=== PATIENT | female | born 1970 | race Caucasian/White ===

== ENCOUNTER 2018-11-01 15:03 | Emergency (ER) | payer OTHER ==
--- NOTE | 2018-11-01 16:27 | EDM.PDOC ---
ED HPI GENERAL MEDICAL PROBLEM - General Chief Complaint: Neuro Symptoms/Deficits Stated Complaint: VISION ISSUES Time Seen by Provider: 11/01/18 16:00 Source of Information: Reports: Patient History Limitations: Reports: No Limitations - History of Present Illness INITIAL COMMENTS - FREE TEXT/NARRATIVE: Eliza is a 48 year old female, hx of Tam thyroiditis who presents to the ED today with c/o right sided visual loss. Patient reports she was in town when symptoms started, lasted for 45 minutes, now completely resolved. Patient has had this happen now three times in the last 2 months. Patient reports that her thyroid levels are "all over the place". Difficulty with finding the right medication dosing. 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 Patient does have hx of migraine headaches but has not had issues with these for 10 years. She does report that when she did have them they did present similarly with right sided visual loss although she always had a headache following. Patient has had no headaches with these episodes. She reports that with her first episode she felt very tired and slept for a few hours, that has not happened since. NO recent fever, injury/trauma. Patient does report that has had ongoing upper thigh numbness for "months". Patient denies any family hx of MS. Patient doesn't report anything that makes her symptoms better or worse. Onset: Today, Sudden Duration: Minutes: (45) - Related Data Allergies Allergy/AdvReac Type Severity Reaction Status Date / Time caffeine Allergy Headache Verified 11/01/18 16:18 Sulfa (Sulfonamide Allergy Rash Verified 11/01/18 16:18 Antibiotics) Home Meds: Home Meds Cannabidiol (Cbd) Extract [Epidiolex] 100 mg PO DAILY 11/01/18 [History] Levothyroxine Sodium [Synthroid] 300 mcg PO DAILY 11/01/18 [History] PARoxetine [Paxil] 20 mg PO DAILY 11/01/18 [History] Social & Family History - Tobacco Use Smoking Status *Q: Never Smoker - Recreational Drug Use Recreational Drug Use: No ED ROS GENERAL - Review of Systems Review Of Systems: ROS reveals no pertinent complaints other than HPI. - Physical Exam Exam: See Below Exam Limited By: No Limitations General Appearance: Alert, WD/WN, No Apparent Distress Eye Exam: Bilateral Eye: EOMI, PERRL Ears: Normal External Exam, Normal TMs Nose: Normal Inspection, Normal Mucosa Throat/Mouth: Normal Oropharynx Head Exam: Atraumatic, Normocephalic Neck: Normal Inspection, Supple, Non-Tender, Other (goiter) Respiratory/Chest: No Respiratory Distress, Lungs Clear, Normal Breath Sounds Cardiovascular: Normal Peripheral Pulses, Regular Rate, Rhythm GI/Abdominal: Normal Bowel Sounds, Soft, Non-Tender Neuro Exam (Abbreviated): Alert, Oriented, CN II-XII Intact, No Motor/Sensory Deficits Back Exam: Normal Inspection Extremities: Normal Inspection, Normal Range of Motion Psychiatric: Normal Affect, Normal Mood Skin Exam: Warm, Dry, Intact Course - Vital Signs Last Recorded V/S: Last Vital Signs Temp 35.9 C 11/01/18 16:10 Pulse 83 11/01/18 16:31 Resp 12 11/01/18 16:31 BP 156/95 H 11/01/18 16:31 Pulse Ox 96 11/01/18 16:31 Eliza is a 48 year old female, presents to the ED today with right sided visual loss, resolved prior to arrival here. Please refer to HPI and focused exam. Patient arrives here mildly hypertensive but otherwise hemodynamically stable, GCS of 15 with no neuro/focal deficits and NIH of O. Likely this is atypical migraine related, given resolution with prior episodes, less likely stroke or mass effect. Given c/o numbness to thighs and increased tiredness earlier when this happened I feel that MS is on the differential. Blood work today including a CBC, BMP and TSH, T3/4 obtained and are all within normal limites. CT of head obtained and is negative for any acute findings. I discussed exam findings and test results with patient, I do recommend follow up with her PCP with regard to MS work up with regard to future MRI of head/spine and potentially a LP as deemed appropriate. Reasons to return to the ED discussed in detail. Patient agreeable and discharged home in stable condition. - Orders/Labs/Meds Orders: Active Orders 24 hr Category Date Time Status Head wo Cont [CT] Stat Exams 11/01/18 16:04 Ordered Labs: Laboratory Tests 11/01/18 11/01/18 Range/Units 16:16 16:16 WBC 5.7 (4.5-11.0) K/uL RBC 4.69 (3.30-5.50) M/uL Hgb 14.1 (12.0-15.0) g/dL Hct 43.3 (36.0-48.0) % MCV 92 (80-98) fL MCH 30 (27-31) pg MCHC 33 (32-36) % Plt Count 286 (150-400) K/uL Neut % (Auto) 59 (36-66) % Lymph % (Auto) 28 (24-44) % Gove % (Auto) 11 H (2-6) % Eos % (Auto) 1 L (2-4) % Baso % (Auto) 1 (0-1) % Sodium 140 (140-148) mmol/L Potassium 4.4 (3.6-5.2) mmol/L Chloride 104 (100-108) mmol/L Carbon Dioxide 27 (21-32) mmol/L Anion Gap 9.1 (5.0-14.0) mmol/L BUN 13 (7-18) mg/dL Creatinine 0.7 (0.6-1.0) mg/dL Est Cr Clr Drug Dosing 87.48 mL/min Estimated GFR (MDRD) > 60 (>60) Glucose 89 (74-106) mg/dL Calcium 8.8 (8.5-10.1) mg/dL Free T4 1.16 (0.76-1.46) ng/dL Free T3 2.40 (2.18-3.98) pg/dL TSH, Ultra Sensitive 1.364 (0.358-3.740) uIU/mL Departure - Departure Time of Disposition: 18:00 Disposition: Home, Self-Care 01 Condition: Good Clinical Impression: Visual disturbance of one eye, Complaint of paresthesia Fatigue Qualifiers: Fatigue type: unspecified Qualified Code(s): R53.83 - Other fatigue - Discharge Information Referrals: PCP,None [Primary Care Provider] - Forms: ED Department Discharge Additional Instructions: Blood work and CT scan reassuring today. Your TSH, T3/4 look good as well. Please follow up with your primary care provider this week to discuss your symptoms with regard to MRI of head/cervical spine. - My Orders Last 24 Hours: My Active Orders 11/01/18 16:04 Head wo Cont [CT] Stat - Assessment/Plan Last 24 Hours: My Active Orders 11/01/18 16:04 Head wo Cont [CT] Stat
--- NOTE | 2018-11-01 17:37 | CRLCT ---
HISTORY: Right-sided visual loss. COMPARISON: None. TECHNIQUE: Noncontrast axial images were obtained from the skullbase to the vertex and reviewed in brain, blood an bone windows. FINDINGS: Muñiz-white matter differentiation is preserved. No evidence for acute intracranial hemorrhage or infarction. No midline shift or mass effect. The ventricles are nondilated and symmetric. No abnormal intra or extra-axial fluid collection. The bony calvaria are intact. Visualized paranasal sinuses and mastoid air cells are clear. IMPRESSION: No acute intracranial pathology. Please note that all CT scans at this facility use dose modulation, iterative reconstruction, and/or weight-based dosing when appropriate to reduce radiation dose to as low as reasonably achievable. Dictated by Zoe Tracy MD @ Nov 01 2018 5:27PM Signed by Dr. Zoe Tracy @ Nov 01 2018 5:35PM
== END 2018-11-01 17:54 | disposition home or self-care (01) ==
LOC: JP.ED 15:03
DX: H53.9 Unspecified visual disturbance (principal); R20.2 Paresthesia of skin; R53.83 Other fatigue; Z79.899 Other long term (current) drug therapy; Z91.018 Allergy to other foods; Z88.2 Allergy status to sulfonamides
CPT/HCPCS: 36415; 70450; 80048; 84439; 84443; 84481; 85025; 99284-25

== ENCOUNTER 2023-11-10 12:40 | Emergency (ER) | payer OTHER | END 2023-11-10 15:01 | disposition home or self-care (01) | LOC: JP.ED 12:40 | DX: S46.911A Strain of unspecified muscle, fascia and tendon at shoulder and upper arm level, right arm, initial encounter (principal); E03.9 Hypothyroidism, unspecified; Z79.899 Other long term (current) drug therapy; Z79.890 Hormone replacement therapy; Z88.2 Allergy status to sulfonamides; Z91.018 Allergy to other foods; X58.XXXA Exposure to other specified factors, initial encounter; Y93.E9 Activity, other interior property and clothing maintenance | CPT/HCPCS: 99283 ==